=== PATIENT | male | born 1985 | race Caucasian/White ===

== ENCOUNTER → 2020-04-24 08:34 | Outpatient (BNVA) | payer OTHER, SELFPAY | PROVIDERS: Family Provider Nurse Practitioner Family; PCP Nurse Practitioner Family; Referring Provider Nurse Practitioner Family; Visit Provider Dermatology | DX: B35.4 Tinea corporis (principal) | CPT/HCPCS: 87220; 99203 ==

== ENCOUNTER → 2021-08-06 15:55 | Outpatient (BNVA) | payer OTHER, SELFPAY | PROVIDERS: Family Provider Nurse Practitioner Family; PCP Nurse Practitioner Family; Visit Provider Nurse Practitioner | DX: Z20.822 Contact with and (suspected) exposure to COVID-19 (principal) | CPT/HCPCS: 87635 ==

== ENCOUNTER → 2022-01-08 13:25 | Outpatient (BNVA) | payer OTHER, SELFPAY | PROVIDERS: Family Provider Nurse Practitioner Family; PCP Nurse Practitioner Family; Visit Provider Emergency Medicine | DX: J02.9 Acute pharyngitis, unspecified (principal) | CPT/HCPCS: 87071; 87880 ==

== ENCOUNTER 2022-01-12 17:34 | Emergency (ER) | payer OTHER, SELFPAY ==
[2022-01-12 17:48] VITALS: BP 119/74; PULSE 77; RESP 16; TEMP 36.8; O2SAT 99; BMI 31.3
[2022-01-12 18:39] VITALS: BP 109/71; PULSE 79; RESP 18; TEMP 36.8; O2SAT 96
--- NOTE | 2022-01-12 19:28 | W.ED.GENADLT ---
HPI - General Adult General: Chief complaint: General Medical Stated complaint: no intake; intermittent fever; meds not helping Time Seen by Provider: 01/12/22 18:34 History of Present Illness: 36-year-old male with history of pots disease presenting to the emergency room with concerns of persistent sore throat and decreased p.o. intake. Patient has been having symptoms for 1 week. Patient denies any drooling, hoarseness of voice, respiratory distress, fever chills, decreased p.o. intake. Onset:1 week ago Duration:1 week Location:home Severity:mild Associated symptoms: Deny chest pain, dyspnea, nausea, rash, palpitations or vomiting Review of Systems Const: Denies: fever(s) or chills Eyes: Denies: change in vision ENMT: Reports: other (+sore throat); Denies: mouth pain Card: Denies: chest pain or palpitations Resp: Denies: dyspnea or non-productive cough GI: Denies: abdominal pain, nausea, vomiting or diarrhea : Denies: dysuria Musc: Denies: extremity pain Skin/Breast: Denies: rash or new lesions Neuro: Denies: weakness in extremities Psych: Reports: other (Normal mood) Arthur/Lymph: Denies: easy bruising PFSH ED PFSH: Medical History No pertinent past medical history Surgical History No history of previous surgery Family History Mother Diabetes Social History Smoking and tobacco status: never smoked Alcohol intake: never History of recent travel: No Physical Exam Const: COMMON NORMALS: alert HENMT: COMMON NORMALS: atraumatic HEAD & SCALP: atraumatic MOUTH: moist mucous membranes not abnormal OTHER: No posterior pharyngeal edema/erythema/exudate, no trismus, no uvula deviation no tongue protrusion or tongue elevation Eye: COMMON NORMALS: EOMs intact bilaterally and conjunctivae normal CONJUNCTIVA: Yes conjunctivae normal Neck/C-Spine: COMMON NORMALS: full ROM and supple Resp: COMMON NORMALS: normal respiratory effort and clear to auscultation bilaterally AUSCULTATION: clear to auscultation bilaterally Cardio: COMMON NORMALS: regular rate RATE: regular rate GI: COMMON NORMALS: Soft to palpation and non-tender PALPATION: Yes Soft to palpation Extremity: COMMON NORMALS: full ROM Neuro: SENSORIUM/ORIENTATION: Yes alert MOTOR EXAM: No Abnormal motor strength present and Other motor observations present (no focal motor deficits) Psych: COMMON NORMALS: speech normal SPEECH: Yes normal speech MOOD & AFFECT: Yes euthymic mood Course Vital Signs: Vital signs: Vital Signs Temperature 98.3 F 01/12/22 18:39 Pulse Rate 88 01/12/22 21:04 Respiratory Rate 16 01/12/22 21:04 Blood Pressure 111/72 01/12/22 21:04 Pulse Oximetry 95 01/12/22 21:04 MDM - General Adult Medical Decision Making 36-year-old male presenting emergency room complaints of sore throat x1 week. No focal finding on physical exam. No signs of respiratory distress or airway compromise. Strep negative. Do not suspect acute pathologies. Rx augmentin for possible pharyngitis Disposition: Discharge. Patient counseled regarding diagnostic impression, treatment plan. Patient given ED strict return precautions to return for continuation, worsening, or development of new symptoms. Instructed to f/u w/ PCP regarding symptoms today. Patient verbalized understanding. Lab Data : 01/12/22 18:40 01/12/22 18:40 Laboratory Results WBC 7.8 10^3/uL (4.0-10.0) 01/12/22 18:40 RBC 5.04 10^6/uL (4.1-5.3) 01/12/22 18:40 Hgb 15.6 g/dL (11.7-16.6) 01/12/22 18:40 Hct 47.0 % (42.0-52.0) 01/12/22 18:40 MCV 93.3 fl (80-94) 01/12/22 18:40 MCH 31.0 pg (28.0-34.0) 01/12/22 18:40 MCHC 33.2 g/dL (30.0-36.0) 01/12/22 18:40 RDW 12.4 % (12.1-15.1) 01/12/22 18:40 Plt Count 223 10^3/cmm (130-400) 01/12/22 18:40 MPV 10.6 fL (7.4-10.4) H 01/12/22 18:40 Neut % (Auto) 67.4 % 01/12/22 18:40 Lymph % (Auto) 23.4 % 01/12/22 18:40 [place] % (Auto) 7.8 % 01/12/22 18:40 Eos % (Auto) 0.8 % 01/12/22 18:40 Baso % (Auto) 0.3 % 01/12/22 18:40 Neut # (Auto) 5.29 10^3/uL (1.8-7.7) 01/12/22 18:40 Lymph # (Auto) 1.8 10^3/uL (0.8-4.8) 01/12/22 18:40 [place] # (Auto) 0.6 10^3/uL (0.2-0.9) 01/12/22 18:40 Eos # (Auto) 0.1 10^3/uL (0.0-0.8) 01/12/22 18:40 Baso # (Auto) 0.0 10^3/uL (0.0-0.1) 01/12/22 18:40 Nucleated RBC % (auto) 0 % 01/12/22 18:40 Nucleated RBCs # 0.0 /100WBC 01/12/22 18:40 Sodium 140 mmol/L (136-145) 01/12/22 18:40 Potassium 3.8 mmol/L (3.5-5.1) 01/12/22 18:40 Chloride 104 mmol/L (98-107) 01/12/22 18:40 Carbon Dioxide 26 mmol/L (22-29) 01/12/22 18:40 Anion Gap 13.8 (5-19) 01/12/22 18:40 BUN 9 mg/dL (6-20) 01/12/22 18:40 Creatinine 0.8 mg/dL (0.7-1.2) 01/12/22 18:40 GFR Calculation 110.7 mL/min (90-130) 01/12/22 18:40 Glucose 96 mg/dL (65-115) 01/12/22 18:40 Calculated Osmolality 289 mOsm/kg (285-295) 01/12/22 18:40 Calcium 9.1 mg/dL (8.5-10.5) 01/12/22 18:40 Group A Strep Rapid Negative (Negative) 01/12/22 19:47 Discharge Plan Discharge Patient Disposition: Home Clinical Impression: Sore throat Condition: Stable Prescriptions: New acetaminophen 500 mg/15 mL liquid 500 mg PO Q6H PRN (Reason: pharyngitis) 5 Days Qty: 237 0RF amoxicillin-pot clavulanate 875-125 mg tablet 1 tab PO BID 7 Days Qty: 14 0RF No Action ropinirole 0.5 mg tablet 0.5 mg PO DAILY 0RF fluticasone propionate [Flonase Allergy Relief] 50 mcg/actuation spray,suspension 2 spray intranasal DAILY Qty: 16 0RF Rx Instructions: administer into each nostril Zyrtec 10 mg capsule 10 mg PO DAILY Qty: 30 0RF amoxicillin 400 mg/5 mL Suspension For Reconstitution 800 mg PO BID 0RF Methylpred 4 mg Tablets,Dose Pack 0 mg PO PER PKG DIR 0RF Discharge Orders: Discharge ED (Routine); Ordered 01/12/22 Ordered By: Cindy Aleman Referrals: Roman Greene [Primary Care Provider] - Discharge Diet: Advance as tolerated Discharge Activity: Increase activity as tolerated Activity Restrictions/Additional Instructions: Please take your antibiotics as instructed. Watch out for signs of skin changes/redness, mouth redeness or swelling, nausea/vomiting, diarrhea, blood in the urine or any new or concering complaints. Coding Level of Care Code ED Sales Enablement Specialist for Raul Fwd Exam Comprehensive
[2022-01-12 19:49] LABS: Basophils % 0.3 %; Eosinophils # 0.1 10^3/uL (0.0-0.8); Eosinophils % 0.8 %; Hemoglobin 15.6 g/dL (11.7-16.6); Lymphocytes # 1.8 10^3/uL (0.8-4.8); Lymphocytes % 23.4 %; Mean Corpuscular HGB Conc 33.2 g/dL (30.0-36.0); Mean Corpuscular Volume 93.3 fl (80-94); Mean Platelet Volume 10.6 fL (7.4-10.4); Monocytes # 0.6 10^3/uL (0.2-0.9); Monocytes % 7.8 %; Neutrophils # 5.29 10^3/uL (1.8-7.7); Neutrophils % 67.4 %; Nucleated Red Blood Cells % 0 %; Platelet Count 223 10^3/cmm (130-400); Red Blood Count 5.04 10^6/uL (4.1-5.3); Red Cell Distribution Width 12.4 % (12.1-15.1); White Blood Count 7.8 10^3/uL (4.0-10.0)
[2022-01-12 20:02] LABS: Anion Gap 13.8 (5-19); Blood Urea Nitrogen 9 mg/dL (6-20); Calcium 9.1 mg/dL (8.5-10.5); Carbon Dioxide 26 mmol/L (22-29); Chloride 104 mmol/L (98-107); Glomerular Filtration Rate 110.7 mL/min (90-130); Glucose 96 mg/dL (65-115); Osmolality Calculated 289 mOsm/kg (285-295); Potassium 3.8 mmol/L (3.5-5.1); Sodium 140 mmol/L (136-145)
[2022-01-12 20:19] LABS: Rapid Strep A Test Negative (Negative)
[2022-01-12] MEDS: lidocaine 2% viscous 1.667 ML, diphenhydrAMINE oral liq 4.165 MG, aluminum-mag hydrox-s... MUCOUS MEM (20:39)
[2022-01-12 21:04] VITALS: BP 111/72; PULSE 88; RESP 16; O2SAT 95
== END 2022-01-12 21:06 | disposition home or self-care (01) ==
PROVIDERS: Emergency Provider Emergency Medicine; PCP Nurse Practitioner Family
DX: J02.9 Acute pharyngitis, unspecified (principal)
CPT/HCPCS: 80048; 85025; 87081; 87880; 99282

== ENCOUNTER → 2022-10-01 12:46 | Outpatient (BNVA) | payer SELFPAY | PROVIDERS: Visit Provider Family Medicine Adult Medicine | DX: Z13.6 Encounter for screening for cardiovascular disorders (principal) | CPT/HCPCS: 80061; 82947; 83036 ==

== ENCOUNTER → 2024-02-24 11:32 | Outpatient (BNVA) | payer OTHER, SELFPAY | PROVIDERS: PCP Family Medicine; Visit Provider Family Medicine | DX: B35.4 Tinea corporis (principal) | CPT/HCPCS: 80053 ==

== ENCOUNTER → 2024-03-30 16:00 | Outpatient (BNVA) | payer OTHER, SELFPAY | PROVIDERS: PCP Family Medicine; Visit Provider Family Medicine | DX: B35.4 Tinea corporis (principal) | CPT/HCPCS: 80053 ==

== ENCOUNTER → 2024-09-19 12:01 | Outpatient (BNVA) | payer OTHER, SELFPAY | PROVIDERS: PCP Family Medicine; Visit Provider Family Medicine | DX: R11.10 Vomiting, unspecified (principal) | CPT/HCPCS: 87400 ==

== ENCOUNTER 2025-04-24 12:04 | Outpatient (CLI) | payer OTHER, SELFPAY ==
[2025-04-24] MEDS: iohexol 350 mg/mL 500 mL Btl (per mL) PO (12:22)
--- NOTE | 2025-04-24 13:15 | CT_ITS ---
WS: [id number] CT ABDOMEN AND PELVIS WITH CONTRAST HISTORY: abd pain, hematochezia TECHNIQUE: Post contrast imaging through the abdomen and pelvis. Oral contrast has been provided. Sagittal and coronal reformats are submitted. All CT scans at [facility] use at least one of these dose optimization techniques: automated exposure control; mA and/or kV adjustment per patient size (includes targeted exams where dose is matched to clinical indication); or iterative reconstruction. CONTRAST: Omnipaque 350; 95 mL IV. DLP: 507.98 mGy.cm COMPARISON: None available. Lung bases are clear. Normal size heart. Small hiatal hernia. Liver, gallbladder, spleen and pancreas are negative. No intrahepatic duct dilatation. Normal adrenal glands. No renal obstruction. Lower pole 9.5 mm cyst RIGHT kidney. No ascites or adenopathy. Normal distention of the stomach with oral contrast. No small bowel obstruction. Normal appendix. No diverticulosis or diverticulitis. No ascites or adenopathy. Tiny ventral abdominal wall hernia. Patent bilateral inguinal canals contain fat only. Negative urinary bladder. No destructive bone lesions. CT/CT abdomen pelvis wo/w [id number] IMPRESSION: 1. No GI tract obstruction or colitis. 2. No renal obstruction or calcifications. 3. Normal appendix. 4. No ascites or adenopathy.
== END 2025-04-24 12:05 | disposition home or self-care (01) ==
PROVIDERS: PCP Family Medicine; Visit Provider Family Medicine
DX: R10.9 Unspecified abdominal pain (principal); G89.29 Other chronic pain; N28.1 Cyst of kidney, acquired
CPT/HCPCS: 74178

== ENCOUNTER 2025-05-23 08:22 | Day surgery (SDC) | payer OTHER, SELFPAY ==
[2025-05-23 08:57] VITALS: TEMP 36.7; BMI 31.3
--- NOTE | 2025-05-23 09:34 | ANES.PREANE2 ---
Pre-Anesthetic Assessment Height/Weight: Height 1.7 m Weight 90.718 kg Temp 98.1 F 05/23/25 08:57 Preop Diagnosis: abdominal pain Operation Date: 05/23/25 10:35 Proposed Procedures p EGD EGD with Biopsy [id number] G0105 Z12.11 K21.9 R10.9(Not Applicable) - Kentrell Talbot MD s Colonoscopy(Not Applicable) - Kentrell Talbot MD Familial anesthetic complications: none Was Beta Joyce taken within 24 hours: N/A Was Clonidine taken within 24 hours: N/A Last intake: Intake Last Liquid Date 05/22/25 Last Liquid Time 23:30 Last Solid Date 05/21/25 Last Solid Time 20:00 Social No alcohol and No tobacco Exam alert, oriented x 3 and clear to auscultation bilaterally Airway Mallampati: Class II Dentition: full History/ROS No significant history except as noted Pulmonary Sleep Apnea (wears CPAP) CV/HEM POTS None reported Hepatic None reported GI Gastroesophageal Reflux Disease Metabolic None reported Musc/skel None reported Neuropsych None reported Anesthetic Plan ASA status: 2 Anesthesia: Anesthesia Evaluation and MAC Risk of > 500 ml blood loss (7ml/kg in children): Yes, adequate IV access and fluids planned Medications/Allergies Home Medications ?Medication ?Instructions ?Recorded ?Confirmed ?Last Taken ?Type ropinirole 0.5 mg tablet 0.5 mg PO DAILY #90 tabs 02/21/25 05/20/25 05/19/25 09:00 Rx Allergies Allergy/AdvReac Type Severity Reaction Status Date / Time No Known Allergies Allergy Verified 05/23/25 08:58 Current Medications Generic Name Dose Route Start Last Admin Trade Name Freq PRN Reason Stop Dose Admin Sodium Chloride 1,000 mls @ 15 mls/hr 05/23/25 08:30 05/23/25 09:06 Sodium Chloride 0.9% IV 05/24/25 08:29 15 mls/hr .Q24H PRN Administration COLONOSCOPY FLUIDS PFSH Anesthesia Medical History Restless leg LIZ (obstructive sleep apnea) Allergic rhinitis due to allergen COVID-19 Positive test 08/06/2021 POTS (postural orthostatic tachycardia syndrome) Surgical History Sublimity teeth removed 06/10/22 No history of previous surgery Family History Mother Diabetes Grandmother Postsurgical cardiac pacemaker in situ Social History Smoking and tobacco/nicotine status: never used tobacco/nicotine Alcohol intake: never Substance/Drug Use: never Lives independently: Yes Marital status: Number of children: 2 Current occupational status: employed Current occupation: [employer] Current gender identity: Male
--- NOTE | 2025-05-23 09:44 | P.HPUD_ITS ---
Surgery/Procedure H&P Update DATE OF PROCEDURE: May 23, 2025 DATE H&P PERFORMED: 05/08/25 H&P UPDATE INFORMATION: I have reviewed H&P completed within last 30 days, I have examined patient prior to procedure, No changes to prior documentation, H&P is in [facility] EMR on date indicated and Risks and benefits of the procedure reviewed PREOP DIAGNOSIS: abdominal pain PLANNED PROCEDURE: Operation Date: 05/23/25 10:35 Proposed Procedures p EGD EGD with Biopsy [id number] G0105 Z12.11 K21.9 R10.9(Not Applicable) - Kentrell Talbot MD s Colonoscopy(Not Applicable) - Kentrell Talbot MD
[2025-05-23 10:27] VITALS: BP 99/63; PULSE 86; RESP 18; TEMP 36.3; O2SAT 96
[2025-05-23 10:35] VITALS: BP 101/69; PULSE 84; RESP 18; O2SAT 93
[2025-05-23 10:53] VITALS: BP 107/69; PULSE 90; RESP 18; O2SAT 95
--- NOTE | 2025-05-23 11:03 | ANE.PACU2 ---
Inpatient post-anesthesia follow up: Airway intact: Yes Vital signs: Temperature 97.3 F Pulse Rate 90 Respiratory Rate 18 Blood Pressure 107/69 Pulse Oximetry 95 Oxygen Delivery Me thod Room Air Oxygen Flow Rate Fraction of Inspir ed Oxygen Hydration adequate: Yes Nausea and vomiting: No Pain level: 1 Mental status: Baseline
== END 2025-05-23 11:03 | disposition home or self-care (01) ==
PROVIDERS: PCP Family Medicine; Visit Provider Surgery
PROC: 0DJ08ZZ Inspection of Upper Intestinal Tract, Via Natural or Artificial Opening Endoscopic (ICD-10-PCS; principal; 2025-05-23 10:35)
PROC: 0DJD8ZZ Inspection of Lower Intestinal Tract, Via Natural or Artificial Opening Endoscopic (ICD-10-PCS; CPT 45378; 2025-05-23 10:35)
DX: Z12.11 Encounter for screening for malignant neoplasm of colon (principal); R10.9 Unspecified abdominal pain; D12.3 Benign neoplasm of transverse colon; D12.5 Benign neoplasm of sigmoid colon; D13.2 Benign neoplasm of duodenum; K21.00 Gastro-esophageal reflux disease with esophagitis, without bleeding; K29.50 Unspecified chronic gastritis without bleeding; K31.7 Polyp of stomach and duodenum; G47.33 Obstructive sleep apnea (adult) (pediatric); Z99.89 Dependence on other enabling machines and devices; G90.A Postural orthostatic tachycardia syndrome [POTS]
CPT/HCPCS: 43251; 45380; 45385; 88305; J2704; J7030; J9999